=== PATIENT | male | born 1975 | race Caucasian/White ===

== ENCOUNTER 2020-12-01 08:52 | Emergency (ER) | payer OTHER, SELFPAY ==
--- NOTE | ~2020-12-01 | XR_ITS ---
EXAMINATION: XR FOOT, RIGHT CLINICAL INFORMATION: Fall. COMPARISON: None TECHNIQUE: AP, lateral, and oblique views of the right foot. FINDINGS: No visible acute fracture, dislocation subluxation. There is a small calcaneal heel spur. The ankle mortise and subtalar joints are normal. XR/XR foot RT min 3V IMPRESSION: Small calcaneal spur. No visible acute fracture or dislocation seen.
--- NOTE | ~2020-12-01 | XR_ITS ---
EXAMINATION: XR ANKLE, RIGHT CLINICAL INFORMATION: Pain. COMPARISON: None TECHNIQUE: AP, lateral, and mortise views of the right ankle. FINDINGS: There is bimalleolar soft tissue swelling. No visible acute fracture or dislocation or subluxation seen. The ankle mortise and subtalar joints are normal. There is a small calcaneal heel spur. Soft tissues are normal. XR/XR ankle RT min 3V IMPRESSION: Small calcaneal heel spur. No visible acute fracture or dislocation seen. Bimalleolar soft tissue swelling.
[2020-12-01 09:07] VITALS: BP 157/102; PULSE 99; RESP 16; TEMP 37; O2SAT 98; BMI 24.4
--- NOTE | 2020-12-01 09:59 | ED.LOWEXIN ---
HPI - Extremity Injury (Lower) General Chief Complaint: Extremity Injury, Lower Stated Complaint: ankle inj rt Time Seen by Provider: 12/01/20 08:54 Source: patient Mode of arrival: ambulatory History of Present Illness HPI Narrative: 45-year-old male presenting to the ED complaining of right foot/ankle pain s/p mechanical slip and fall down 5 stairs on Tuesday night. States went to urgent care but x-rays could not be performed. Denies head trauma or LOC, denies symptoms prior to fall. States pain/difficulty ambulating. Denies numbness, tingling, weakness complaint: ankle injury and foot injury Related Data Previous Rx's Medication Instructions Recorded acetaminophen [Tylenol Extra 500 mg PO Q6H PRN #20 tab 12/01/20 Strength] naproxen 500 mg PO BID PRN 10 Days #20 tab 12/01/20 Allergies Allergy/AdvReac Type Severity Reaction Status Date / Time No Known Allergies Allergy Verified 12/01/20 08:54 Review of Systems Review of Systems: Constitutional: No Weight loss, No Fever, No Chills Musculoskeletal: + joint pain, No Myalgias, + Joint Swelling Skin: No Skin Lesions, No rash Neuro: No Weakness, No Numbness, No Paresthesias, no head trauma, no LOC Yes all other systems are reviewed and are negative [facility] Past Medical History Attestation statement: The following information was validated with the patient. Medical History (Updated 12/01/20 @ 10:03 by ONEIDA Wilson) Reflux gastritis Social History Social History Use of substances other than those prescribed or required for medical reasons: No Advance Directives: No Advance Directives Information Provided: Yes Physical Exam Vital Signs: Vital Signs: Last Vital Signs Temp 98.6 F 12/01/20 09:07 Pulse 99 12/01/20 09:07 Resp 16 12/01/20 09:07 BP 157/102 H 12/01/20 09:07 Pulse Ox 98 12/01/20 09:07 Body Mass Index 24.4 Const: General: cooperative and healthy appearing Orientation/consciousness: patient oriented x3 Limitations: no limitations HENMT: Head: Yes normal to inspection Ears: hearing grossly normal bilaterally General nose exam: Normal external nose present Face and sinus: Yes normal facial exam Eyes: General: appearance normal, both eyes and all related structures EOM: EOMs intact bilaterally Neck: Neck: Yes normal visual inspection and Yes no meningeal signs Resp: Effort & Inspection: normal respiratory effort Cardio: Peripheral pulses: dorsalis pedis present Skin: Rashes: no rashes Wounds: no wounds Neuro: General: patient oriented x3 and no meningeal signs Extrem: Other: Right foot and ankle with notable swelling and diffuse tenderness to palpation. Neurovascularly intact. Range of motion decreased secondary to pain. Knee nontender, no swelling, FROM intact Course Course Course Narrative: -ankle x-ray showing small calcaneal spur. No visible fracture or dislocation. -foot x-ray without visible fracture or dislocation Patient placed in Aircast and spinous crutches to follow-up with PCP Discharge Plan Discharge Clinical Impression: Ankle sprain and strain Patient Disposition: Home, Self-Care Instructions: Ankle Sprain (ED) Additional Instructions: Your x-rays did not show any fracture or dislocation. Wear Aircast at home as needed for comfort/disability. Bear weight only as tolerated. Rest. Ice. Elevate. Naproxen as an anti-inflammatory/pain medication, take with food. In addition take Tylenol. Follow up with her primary care doctor Prescriptions: New acetaminophen [Tylenol Extra Strength] 500 mg tablet 500 mg PO Q6H PRN (Reason: pain or fever) Qty: 20 RF: 0 naproxen 500 mg tablet 500 mg PO BID PRN (Reason: pain) 10 Days Qty: 20 RF: 0 Referrals: Physician,Unknown [Primary Care Provider] - 5 days
== END 2020-12-01 10:51 | disposition home or self-care (01) ==
PROVIDERS: Emergency Provider Emergency Medicine
DX: S93.401A Sprain of unspecified ligament of right ankle, initial encounter (principal); S96.911A Strain of unspecified muscle and tendon at ankle and foot level, right foot, initial encounter; W10.8XXA Fall (on) (from) other stairs and steps, initial encounter; Y93.89 Activity, other specified; Y92.9 Unspecified place or not applicable; Y99.9 Unspecified external cause status
CPT/HCPCS: 73610; 73630; 99283